=== PATIENT | male | born 1960 | race American Indian/Alaskan Native ===

== ENCOUNTER 2017-05-09 12:46 | Emergency (ER) | payer MEDICAID ==
[2017-05-09 12:53] VITALS: BMI 40.2
[2017-05-09 13:04] VITALS: TEMP 98.1
--- NOTE | 2017-05-09 13:27 | C.PDOC ---
History Of Present Illness A 57 year old male, who denies any significant past medical history, presents to the emergency department for right facial droop, which gradually began 3 days ago. The patient states he has difficulty chewing, he dribbles his food and he has been accidentally biting the right side of his cheek. The patient denies any headaches, arm weakness, leg weakness, chest pain, shortness of breath, vision changes, or any other complaints at this time. He is questionable for a history of stroke without neuro deficit. Time Seen by Provider: 05/09/17 13:24 Chief Complaint (Nursing): Weakness/Neurological Deficit History Per: Patient History/Exam Limitations: no limitations Onset/Duration Of Symptoms: Days (x 3 days), Gradual Current Symptoms Are (Timing): Still Present Past Medical History Reviewed: Historical Data, Nursing Documentation, Vital Signs Vital Signs: Last Vital Signs Temp 98.1 F 05/09/17 12:54 Pulse 53 L 05/09/17 13:39 Resp 18 05/09/17 13:39 BP 122/87 05/09/17 13:39 Pulse Ox 100 05/09/17 16:44 Family History: States: Unknown Family Hx - Social History Hx Alcohol Use: No Hx Substance Use: No - Immunization History Hx Tetanus Toxoid Vaccination: No Hx Influenza Vaccination: Yes Hx Pneumococcal Vaccination: Yes Review Of Systems Constitutional: Negative for: Fever, Weakness Eyes: Negative for: Vision Change Cardiovascular: Negative for: Chest Pain Respiratory: Negative for: Shortness of Breath Neurological: Positive for: Other (facial droop ) Physical Exam - Physical Exam Appears: Well, Non-toxic, No Acute Distress Skin: Normal Color, Warm, Dry Head: Atraumatic, Normacephalic, Other (severe right facial droop with forehead right eyelid lag) Eye(s): bilateral: PERRL, EOMI, right: Normal Inspection, left: Other (Baseline : 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) Nose: Normal Throat: Normal Neck: Normal Cardiovascular: Rhythm Regular Respiratory: Normal Breath Sounds Gastrointestinal/Abdominal: Normal Exam Back: Normal Inspection Extremity: Normal ROM, No Tenderness, No Pedal Edema, No Calf Tenderness, No Capillary Refill, No Deformity, No Swelling Extremity: Bilateral: Atraumatic, No Pedal Edema, Normal Color And Temperature, Normal ROM Neurological/Psych: Oriented x3, Normal Speech, Normal Cognition, Normal Cranial Nerves, No Cerebellar Signs, Normal Motor ED Course And Treatment O2 Sat by Pulse Oximetry: 100 Medical Decision Making Medical Decision Making: Treatment Plan: -- Prednisone, Pepcid Progress Notes: 3 days worstening R facial droop without headache, no facial vesicles, no MARTEL, no eye/vision changes c/w Emerson's Plasy Disposition Doctor Will See Patient In The: Office Counseled Patient/Family Regarding: Studies Performed, Diagnosis - Disposition Referrals: [facility] [Outside] [facility] [Outside] Disposition: HOME/ ROUTINE Disposition Time: 13:27 Condition: GOOD Additional Instructions: Prednisone taper: 60 mg daily for 4 more days 40 mg for 3 days, 20 mg for 3 days, 10 mg for 3 days, off pepcid 20 mg @ night to prevent increased stomach acid/gastritis from the Prednisone Artifial Tear Drops @ night to avoid eye drying out. Tape your eye closed at night to prevent the cornea drying out while you sleep ( it opens while you sleep) Follow-up in our outpatient clinic as needed. Prescriptions: Famotidine [Pepcid] 20 mg PO HS #30 tab Prednisone [Deltasone] 20 mg PO DAILY #23 tablet Instructions: Meerson Palsy (ED) Forms: [employer] (Malawian) - Clinical Impression Clinical Impression: Facial droop - Scribe Statement The provider has reviewed the documentation as recorded by the Scribe Steffi De Souza All medical record entries made by the Scribe were at my direction and personally dictated by me. I have reviewed the chart and agree that the record accurately reflects my personal performance of the history, physical exam, medical decision making, and the department course for this patient. I have also personally directed, reviewed, and agree with the discharge instructions and disposition.
[2017-05-09 13:40] VITALS: BP 122/87; PULSE 53; RESP 18
[2017-05-09 16:44] VITALS: O2SAT 100
== END 2017-05-09 13:40 | disposition home or self-care (01) ==
LOC: EDBD 12:46 → MERGE 12:46 → C.ER 12:46
DX: R29.810 Facial weakness (principal)

== ENCOUNTER 2018-08-30 18:05 | Outpatient (CLI) | payer MEDICARE, MEDICAID | END 2018-08-30 18:06 | disposition home or self-care (01) | LOC: C.SLEEP 18:06 | DX: G47.33 Obstructive sleep apnea (adult) (pediatric) (principal) ==